=== PATIENT | male | born 1970 | race Caucasian/White ===

== ENCOUNTER 2019-12-23 12:22 | Outpatient (CLI) | payer BC, SELFPAY ==
[2019-12-23 12:53] LABS: Alanine Aminotransferase 32 U/L (4-50); Albumin Level 4.4 g/dL (3.5-5.1); Alkaline Phosphatase 54 U/L (38-126); Anion Gap 7 mmol/L (8-16); Aspartate Amino Transferase 27 U/L (17-59); Blood Urea Nitrogen 20 mg/dL (9-20); Calcium 9.2 mg/dL (8.4-10.2); Carbon Dioxide 30 mmol/L (22-30); Chloride 104 mmol/L (98-107); Cholesterol 177 mg/dL (0-200); Estimated Glomerular Filt Rate > 60; Glucose 90 mg/dL (75-110); HDL Direct 42 mg/dL; Potassium 4.2 mmol/L (3.4-5.0); Sodium 141 mmol/L (137-145); Triglycerides 37 mg/dL (<150)
[2019-12-23 13:04] LABS: LDL Cholesterol Direct 125 mg/dL
[2019-12-23 13:22] LABS: Prostate Specific Antigen 0.7 ng/mL (< OR = 4.0)
== END 2019-12-23 12:23 | disposition home or self-care (01) ==
PROVIDERS: PCP Internal Medicine; Visit Provider Internal Medicine
DX: Z13.220 Encounter for screening for lipoid disorders (principal); Z00.00 Encounter for general adult medical examination without abnormal findings; Z12.5 Encounter for screening for malignant neoplasm of prostate
CPT/HCPCS: 36415; 80053; 80061; 84153; G0103

== ENCOUNTER 2024-08-15 08:48 | Emergency (ER) | payer BC, SELFPAY ==
--- NOTE | ~2024-08-15 | CT_ITS ---
EXAMINATION: CT brain wo con DATE: 08/15/2024 09:51 INDICATION: Dizziness TECHNIQUE: Computed tomography (CT) of the head was performed without intravenous contrast. Sagittal and coronal reconstructions were performed. The mA was adjusted according to patient size. Iterative reconstruction technique was employed. The dose-length product was 756.67 mGy-cm. COMPARISON: None FINDINGS: No acute intracranial hemorrhage, acute infarction or abnormal extra axial fluid collection. Ventricl es are normal and symmetric. No mass/mass effect. Left-sided maryellen bullosa and rightward deviation o f the nasal septum. There is mucosal thickening the posterior most right ethmoid air cell. The orbits and mastoid air cells are normal. IMPRESSION: 1. Normal brain. No acute intracranial process. Reviewed, dictated and finalized at location A.
--- NOTE | ~2024-08-15 | XR_ITS ---
EXAMINATION: XR chest 1V portable DATE: 08/15/2024 09:18 INDICATION: Dizziness TECHNIQUE: frontal view of the chest was obtained. COMPARISON: None FINDINGS: Minimal linear discoid atelectasis at the lateral left lower lung zone. No other airspace opacities, pulmonary edema, pleural effusion or pneumothorax. The cardiomediastinal silhouette is normal. IMPRESSION: 1. Minimal discoid atelectasis at the left lower lung zone. No other acute cardiopulmonary disease. Reviewed, dictated and finalized at location A. IMPRESSION: 1. Minimal discoid atelectasis at the left lower lung zone. No other acute card iopulmonary disease.
--- NOTE | 2024-08-15 08:55 | ECG_ITS ---
Test Date: 2024-08-15 09:00:43 Measurements Intervals Wilder Rate: 120 P: 49 OR: 155 QRS: 3 QRSD: 85 T: 40 QT: 297 QTc: 420 Interpretive Statements SINUS TACHYCARDIA DELAYED PRECORDIAL R/S TRANSITION BASELINE ARTIFACT- AVR, AVL, AVF, V4 ABNORMAL ECG No previous ECG available for comparison Electronically Signed On 08-15-2024 19:17:08 CDT by Chace Og D.O.
[2024-08-15 09:00] VITALS: BP 128/72; PULSE 123; RESP 27; TEMP 37.2; O2SAT 95
--- NOTE | 2024-08-15 09:10 | ED.DIZZY ---
HPI - Dizziness General Chief Complaint: Dizziness Stated Complaint: I can't regulate temperature Time Seen by Provider: 08/15/24 09:05 Source: patient Mode of arrival: ambulatory Limitations: no limitations History of Present Illness HPI Narrative: 54 years old white male came to the ED by private car complaining feeling hot all over mainly in the brain associated with dizziness started 2:30 a.m.. 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 Currently patient still feeling heat all over. He denies any chills, nausea, vomiting, chest pain, shortness of breath, vision change, abdominal pain or back pain or urinary symptoms. Patient does not smoke or drink or use drugs. Patient is telling me that he had similar symptom years ago after taking high dose of potassium supplement. Patient currently on no medications. Related Data Allergies Allergy/AdvReac Type Severity Reaction Status Date / Time No Known Allergies Allergy Verified 08/15/24 08:49 Review of Systems Review of Systems: All systems reviewed & are unremarkable except as noted in HPI and below PMFSH Family History Family History Father Patient's father is in good health Sibling Patient's sister is in good health Patient's brother is in good health Mother Family history of malignant neoplasm of cervix Patient's mother is Social History Social History Smoking status: Never smoker Alcohol intake: never Exam Narrative: General appearance: Well-developed, well-nourished Skin: Normal color Head: Normocephalic, nontraumatic Eyes: Clear conjunctiva ENT: Oropharynx normal, ears normal, nose normal Neck: Supple, nontender Chest and respiratory: Airway patent, no respiratory distress, no accessory muscle use Heart: Regular rate/rhythm Abdomen: Soft, nontender, no organomegaly, quiet bowel sounds Vascular: Normal peripheral pulses, normal capillary refill. 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 Last time was seen by a physician before the COVID. Vital signs showing heart rate of 123, respiratory rate 27, temperature 37.2?, sat 95% on room air. Physical examination insignificant Differential diagnosis include anxiety like symptoms, hyperthyroidism, diabetes, dehydration, electrolyte imbalance Blood workup today includes CBC, CMP, blood culture, CRP, sed rate, TSH, CPK showed WBC 14.2, glucose 272, lactic acid 3.0, C-reactive protein 2.3, Chest x-ray showed no acute abnormalities CT head without contrast showed no acute abnormalities EKG showed sinus tachycardia Patient's symptom of feeling heat all over his body, brain, dizziness are gun after receiving 1 L of normal saline IV. Patient requested 2 days of work because too much stress at work Diagnosis hyperglycemia high likely secondary to undiagnosed diabetes Discharged on metformin The pt was discharged to home.the pt,s condition upon discharge was fair,education was provided to the pt in reference to the final impression,discharge study results,treatment,prognosis and need for follow up . Differential Diagnosis Differential diagnosis: Likely other (As above) Medical Records Attestation: I reviewed the patient's medical records. Lab Data Attestation: I reviewed the patient's lab results. 08/15/24 09:05 08/15/24 09:05 Labs: Lab Results 08/15/24 08/15/24 Range/Units 09:05 10:17 WBC 14.2 H (4.5-10.0) K/mm3 RBC 5.63 (4.6-6.20) M/mm3 Hgb 15.5 (14.0-18.0) g/dL Hct 47.1 (42.0-52.0) % MCV 83.7 (80-100) fl MCH 27.5 (26-34) pg MCHC 32.9 (32-36) g/dl RDW 13.2 (11.5-14.5) % Plt Count 285 (150-375) k/mm3 MPV 10.0 (7.4-10.4) fl Immature Gran % (Auto) 1.1 H (0-0.5) % Neut % (Auto) 85.5 H (45.5-73.1) % Lymph % (Auto) 3.9 L (18.3-44.2) % Talbot % (Auto) 8.6 H (2.6-8.5) % Eos % (Auto) 0.5 (0-4.4) % Baso % (Auto) 0.4 (0.2-1.2) % Lymph # (Auto) 0.56 L (0.9-3.2) K/mm3 Talbot # (Auto) 1.2 H (0.1-0.6) K/mm3 Eos # (Auto) 0.1 (0-0.3) K/mm3 Baso # (Auto) 0.1 (0.0-0.1) K/mm3 Abs Immat Gran (auto) 0.15 H (0.00-0.031) K/mm3 Absolute Neuts (auto) 12.2 H (1.3-6.7) K/mm3 Absolute Nucleated RBC 0.000 (0.0-0.012) K/mm3 Nucleated RBC % 0.0 (0.0-0.2) % ESR 8 (0-20) mm/hr Sodium 137 (137-145) mmol/L Potassium 4.1 (3.4-5.0) mmol/L Chloride 102 (98-107) mmol/L Carbon Dioxide 23 (22-30) mmol/L Anion Gap 12 (4-12) mmol/L BUN 17 (9-20) mg/dL Creatinine 0.92 (0.7-1.3) mg/dL Estim Creat Clear Calc 116 ml/min Estimated GFR > 60 (59 - ) Glucose 272 H (65-110) mg/dL Hemoglobin A1c 8.5 H (<5.7) % Lactic Acid 3.0 H (0.7-2.0) mmol/L Calcium 9.2 (8.4-10.2) mg/dL Total Bilirubin 0.9 (0.2-1.3) mg/dL AST 31 (17-59) U/L ALT 34 (6-50) U/L Alkaline Phosphatase 94 (38-126) U/L Total Creatine Kinase 121 (55-170) U/L C-Reactive Protein 2.3 H (<1.0) mg/dL Total Protein 8.0 (6.3-8.2) g/dL Albumin 4.5 (3.5-5.1) g/dL TSH 2.050 (0.465-4.680) uIU/mL Imaging Data Radiologist's impression: Impressions Chest X-Ray 08/15/24 09:28 IMPRESSION: 1. Minimal discoid atelectasis at the left lower lung zone. No other acute cardiopulmonary disease. Head CT 08/15/24 09:52 IMPRESSION: 1. Normal brain. No acute intracranial process. Critical Care Time Critical Care Time Critical Care Time: No Discharge Plan Discharge Clinical Impression: Acute hyperglycemia Patient Disposition: Home Condition: Improved Instructions: Diabetic Hyperglycemia (ED) Additional Instructions: Return if symptoms are worsening , call your family physician for appointment, take Tylenol as as needed for aches and pain, continue home medications. Patient Language: Romansh Prescriptions: New metformin 850 mg tablet 850 mg PO DAILY Qty: 30 0RF Follow-up/Referrals: Thomas Oseguera DO [Physician] - Mushtaq Almanza MD [Physician] - 08/17/24 Stand Alone Forms: Work/School Release IP
[2024-08-15 09:11] LABS: Basophils Absolute Auto 0.1 K/mm3 (0.0-0.1); Basophils Percent Auto 0.4 % (0.2-1.2); Eosinophils Absolute Auto 0.1 K/mm3 (0-0.3); Eosinophils Percent Auto 0.5 % (0-4.4); Hematocrit 47.1 % (42.0-52.0); Hemoglobin 15.5 g/dL (14.0-18.0); Immature Granulocyte Absolute 0.15 K/mm3 (0.00-0.031); Immature Granulocyte Percent A 1.1 % (0-0.5); Lymphocytes Absolute Auto 0.56 K/mm3 (0.9-3.2); Lymphocytes Percent Auto 3.9 % (18.3-44.2); Mean Corpuscular HGB Conc 32.9 g/dl (32-36); Mean Corpuscular Hemoglobin 27.5 pg (26-34); Mean Corpuscular Volume 83.7 fl (80-100); Monocytes Absolute Auto 1.2 K/mm3 (0.1-0.6); Monocytes Percent Auto 8.6 % (2.6-8.5); Neutrophils Absolute Auto 12.2 K/mm3 (1.3-6.7); Neutrophils Percent Auto 85.5 % (45.5-73.1); Platelet Count Result 285 k/mm3 (150-375); Red Blood Count 5.63 M/mm3 (4.6-6.20); Red Cell Distribution Width 13.2 % (11.5-14.5); White Blood Count 14.2 K/mm3 (4.5-10.0)
[2024-08-15 09:20] LABS: Alanine Aminotransferase 34 U/L (6-50); Albumin Level 4.5 g/dL (3.5-5.1); Alkaline Phosphatase 94 U/L (38-126); Anion Gap 12 mmol/L (4-12); Aspartate Amino Transferase 31 U/L (17-59); Bilirubin,Total 0.9 mg/dL (0.2-1.3); Blood Urea Nitrogen 17 mg/dL (9-20); Calcium 9.2 mg/dL (8.4-10.2); Carbon Dioxide 23 mmol/L (22-30); Chloride 102 mmol/L (98-107); Estimated CRCL calculation 116 ml/min; Estimated Glomerular Filt Rate > 60; Glucose 272 mg/dL (65-110); Potassium 4.1 mmol/L (3.4-5.0); Sodium 137 mmol/L (137-145)
[2024-08-15] MEDS: SODIUM CHLORIDE 0.9% IV 1,000 ML 999 ML IV CONT (09:33)
[2024-08-15 09:56] LABS: CRP 2.3 mg/dL (<1.0); Creatine Kinase 121 U/L (55-170)
[2024-08-15 10:07] LABS: Erythrocyte Sedimentation Rate 8 mm/hr (0-20)
[2024-08-15 11:44] LABS: Hemoglobin A1C 8.5 % (<5.7)
[2024-08-15 11:47] VITALS: BP 135/64; PULSE 109; RESP 16; O2SAT 94
[2024-08-15 12:24] LABS: Reflex Lactic Acid Yes or No Add Lactic
== END 2024-08-15 11:49 | disposition home or self-care (01) ==
PROVIDERS: Emergency Provider Emergency Medicine
DX: R73.9 Hyperglycemia, unspecified (principal)
CPT/HCPCS: 36415; 70450; 71045; 80053; 82550; 83036; 83605; 84443; 85025; 85652; 86140; 87040; 93005; 96360; 99284; J7030

== ENCOUNTER 2024-12-29 14:12 | Emergency (ER) | payer BC, SELFPAY ==
--- NOTE | ~2024-12-29 | XR_ITS ---
EXAMINATION: XR hip LT min 2V, 12/29/2024 14:45 CDT HISTORY: L hip pain x 2 days. NKI. Painful to ambulate COMPARISON: No comparisons available. Findings: No acute fracture or malalignment. No significant degenerative changes. Soft tissues unremarkable. Impression: No acute fracture or malalignment. Reviewed, dictated and finalized at location P. Impression: No acute fracture or malalignment.
[2024-12-29 14:26] VITALS: BP 137/68; PULSE 43; RESP 18; TEMP 36.4; O2SAT 98
--- NOTE | 2024-12-29 14:34 | ED_ITS ---
HPI - Extremity Problem General Chief complaint: Extremity Problem,Nontraumatic Stated complaint: LT Hip Pain Time Seen by Provider: 12/29/24 14:34 Source: patient Mode of arrival: ambulatory Limitations: no limitations History of Present Illness HPI Narrative: 54-year-old male presents with complaint of left hip pain. Pain started yesterday evening while at work. Denies any exact injury. Has not taking any [id number] medications to treat pain. Denies back pain. Ambulatory with slight limp. Patient also or a reports lump noted to Right groin area. Nonpainful. All systems reviewed and negative except as noted above. Related Data Home Medications ?Medication ?Instructions ?Recorded ?Confirmed ?Last Taken ?Type No Home Medications 12/29/24 12/29/24 U nknown History Allergies Allergy/AdvReac Type Severity Reaction Status Date / Time No Known Allergies Allergy Verified 12/29/24 14:26 [facility] Family History Family History Father Patient's father is in good health Sibling Patient's sister is in good health Patient's brother is in good health Mother Family history of malignant neoplasm of cervix Patient's mother is Social History Social History Smoking status: Never smoker Alcohol intake: never Comments At time of signature, agree with nursing past medical, surgical, social and family history. There is no relevant family history pertinent to the presenting complaint. Exam Narrative: GENERAL: This is a well-nourished, well-developed patient, in no apparent distress. HEAD: normocephalic, atraumatic. EYES: PERRL. Sclera clear/white. Vision is grossly intact. EARS: External ears normal NOSE: External nose normal NECK: Neck supple, non-tender without lymphadenopathy, masses or thyromegaly. CARDIOVASCULAR: Regular rate and rhythm without murmurs, gallops, or rubs. RESPIRATORY: Clear to auscultation. Breath sounds equal bilaterally. No wheezes, rales, or rhonchi. SKIN: warm, Dry, intact with no suspicious lesions or rash, good texture and turgor. Firm lump noted to right groin. Nontender. approximate 2 cm diameter. NEURO: awake, alert, and oriented to person, place and time. There were no obvious focal neurologic abnormalities. EXTREMITIES: Tenderness to left hip, lateral aspect. No swelling or deformity noted. Range of motion normal. Course Course Level of Care: Express Care Visit Vital Signs Vital signs: Vital Signs Temperature 36.4 C L 12/29/24 14: Pulse Rate 43 L 12/29/24 14:26 Respiratory Rate 18 12/29/24 14: Blood Pressure 137/68 12/29/24 14:26 Pulse Oximetry 98 12/29/24 14:26 Oxygen Delivery Room Air 12/29/24 14:26 Temperature 36.4 C L 12/29/24 14:26 Pulse Rate 43 L 12/29/24 14: Respiratory Rate 18 12/29/24 14: Blood Pressure 137/68 12/29/24 14: Pulse Oximetry 98 12/29/24 14:26 Oxygen Delivery Room Air 12/29/24 14:26 Reviewed MDM - Extremity (Nontraumatic) MDM Narrative Medical decision making narrative: X-ray of left hip is normal. Recommend [id number] pain medications, rest. Recommend follow-up with primary care physician for further evaluation of a lump noted to right groin area. Patient is well-appearing, nontoxic. Discharge Plan Discharge Clinical Impression: Acute pain of left hip, Lump in the groin Patient Disposition: Home Condition: Stable Instructions: Hip Pain (ED) Additional Instructions: the x-ray of your left hip was normal. Take Tylenol or ibuprofen every 6-8 hours as needed for pain. Apply ice as needed for pain. Follow-up with primary care physician for further evaluation of your left hip pain and lump noted to groin area. Patient Language: Greenlandic Prescriptions: No Action No Home Medications Follow-up/Referrals: Mushtaq Almanza MD [Physician, Family Practice] Referral Note: Establish care with a primary care physician Stand Alone Forms: Work/School Release IP Time of Disposition: 15:13
== END 2024-12-29 15:17 | disposition home or self-care (01) ==
PROVIDERS: Emergency Provider Nurse Practitioner Family
DX: M25.552 Pain in left hip (principal); R19.03 Right lower quadrant abdominal swelling, mass and lump
CPT/HCPCS: 73502; 99213; G0463